=== PATIENT | male | born 1955 | race American Indian/Alaskan Native ===

== ENCOUNTER 2022-10-30 15:49 | Inpatient (IN) | payer MEDICARE, MEDICAID ==
[2022-10-30] VITALS (16 sets, daily range): BP systolic 97–134; BP diastolic 40–75
[~2022-10-30] VITALS: Ht 157.5 cm; Wt 89.7 kg
[2022-10-30] MEDS ORDERED: phenylephrine 10mg/ml inj. -priapism dosing ONE (16:09)
[2022-10-30] MEDS ORDERED: atropine 0.1mg/ml 10ml syringe ONE (16:09)
[2022-10-30] MEDS ORDERED: DOPamine 400mg/D5W 250ml 0 ML IV ONE (16:09)
[2022-10-30] MEDS ORDERED: LIDOcaine 1% 30ml preserv. free vial ONE (16:09)
[2022-10-30] MEDS ORDERED: heparin 1,000unit/ml 10ml vial 10 ML ONE (16:10)
[2022-10-30] MEDS ORDERED: iohexol 350MG/ML 100ml bottle IV ONE (16:10)
--- NOTE | 2022-10-30 16:10 | NUR ---
Pt upset because he wanted the IV in the right side. Pt not following commands or answering questions at this time. Caregiver states he is stubborn and won't talk when he's mad. Unable to complete full neuro assessment on pt.
[2022-10-30] MEDS ORDERED: diphenhydrAMINE 25mg capsule PO PRN (16:15)
[2022-10-30] MEDS ORDERED: LORazepam 0.5 MG tablet PO PRN (16:15)
[2022-10-30] MEDS: normal saline 1,000 ML IV SCH (16:15)
[2022-10-30] MEDS ORDERED: FLO0.4C PO (16:30)
[2022-10-30] MEDS ORDERED: ERGO400C PO (16:30)
[2022-10-30] MEDS ORDERED: TOPI-253 PO (16:30)
[2022-10-30] MEDS ORDERED: ASPI-611 PO (16:30)
[2022-10-30] MEDS ORDERED: CLIN300C56 PO (16:30)
[2022-10-30] MEDS ORDERED: PHEN100C12 PO (16:30)
[2022-10-30] MEDS ORDERED: CLOT30CR19 TOP (16:30)
[2022-10-30] MEDS ORDERED: ATOR40TA72 PO (16:30)
[2022-10-30] MEDS ORDERED: SOLI10TA7 PO (16:30)
[2022-10-30] MEDS ORDERED: AMLO10TA13 PO (16:30)
[2022-10-30] MEDS ORDERED: CLOP75TA34 PO (16:30)
[2022-10-30] MEDS ORDERED: PRIM250T8 PO (16:30)
[2022-10-30] MEDS ORDERED: LOSA100T58 PO (16:30)
[2022-10-30 16:40] LABS: BASOPHILS # (AUTO) 0.1 X10'3 (0-0.2); BASOPHILS % (AUTO) 1.4 % (0-1); EOSINOPHILS # (AUTO) 0.6 X10'3 (0-0.9); EOSINOPHILS % (AUTO) 6.5 % (0-6); HEMATOCRIT 43.4 % (42.0-52.0); HEMOGLOBIN 14.5 g/dl (14.0-17.9); LYMPHOCYTES # (AUTO) 2.1 X10'3 (1.1-4.8); LYMPHOCYTES % (AUTO) 22.1 % (21-51); MEAN CORPUSCULAR HEMOGLOBIN 30.3 PG (27.0-31.0); MEAN CORPUSCULAR HGB CONC 33.3 g/dL (33.0-36.5); MEAN PLATELET VOLUME 7.7 FL (7.4-10.4); MONOCYTES # (AUTO) 0.9 X10'3 (0-0.9); MONOCYTES % (AUTO) 9.5 % (2-12); NEUTROPHILS # (AUTO) 5.8 X10'3 (1.8-7.7); NEUTROPHILS % (AUTO) 60.5 % (42-75); PLATELET COUNT 300 X10'3 (140-440); RED BLOOD COUNT 4.77 X10'6 (4.70-6.10); RED CELL DISTRIBUTION WIDTH 14.4 % (11.5-14.5); WHITE BLOOD COUNT 9.7 X10'3 (4.5-11.0)
[2022-10-30 16:50] LABS: ALBUMIN 3.5 G/DL (3.4-5.0); ANION GAP 8 (8-16); BLOOD UREA NITROGEN 14 MG/DL (7-18); BUN/CREATININE RATIO 19.7 (10.0-20.0); CALCIUM 8.5 MG/DL (8.5-10.1); CHLORIDE 108 MMOL/L (99-107); CREATININE 0.71 MG/DL (0.60-1.10); GLUCOSE 118 MG/DL (70-104); POTASSIUM 3.7 MMOL/L (3.5-5.1); SODIUM 139 MMOL/L (135-145); TOTAL CARBON DIOXIDE 23.4 MMOL/L (24-32); eGFR > 90 ML/MIN
[2022-10-30] MEDS ORDERED: fentaNYL/PF 50MCG/1 ML 2ML syringe ONE (17:27)
[2022-10-30] MEDS ORDERED: clopidogrel 300mg tablet ONE (17:27)
--- NOTE | 2022-10-30 17:50 | NUR ---
Pt back from test lab technician. Report received. Dressing to right groin CD&I. Limited neuro assessment performed. Pt keeps closing eyes when I try to check his pupils with the pen light. Refusing pupil assessment. Cont to monitor.
[2022-10-30] MEDS ORDERED: hydrALAZINE 20mg/ml inj. IV PRN (18:25)
[2022-10-30] MEDS ORDERED: HYDROcodone/acetaminophen 10/325mg tab PO PRN (18:25)
[2022-10-30] MEDS ORDERED: pseudoephedrine 30mg tablet PO PRN (18:25)
[2022-10-30] MEDS: DOPamine 400mg/D5W 250ml 250 ML IV SCH (18:25)
[2022-10-30] MEDS ORDERED: normal saline 1000ml 1,000 ML IV SCH (18:25)
[2022-10-30] MEDS ORDERED: HYDROcodone/acetaminophen 5mg/325mg tablet PO PRN (18:25)
--- NOTE | 2022-10-30 18:25 | NUR ---
Patient in room PCU 3021. I have received report from Marily ARAIZA at [facility] stay and had the opportunity to ask questions and assume patient care.
--- NOTE | 2022-10-30 18:30 | NUR ---
Patient in room PCU 3021. I have received report from Jaja ARAIZA and had the opportunity to ask questions and assume patient care.
--- NOTE | 2022-10-30 18:30 | NUR ---
Pt transferred to room 3021. Report given to Justine ARAIZA. Pt groin CD&I without s/s hematoma or bleeding. All pt belongings tranferred to room as well. Transfer of care to Justine ARAIZA.
[2022-10-30] MEDS ORDERED: tamsulosin 0.4mg capsule PO SCH (21:00)
[2022-10-30] MEDS: cholecalciferol (vitamin D3) 400 unit (10mcg) tablet PO SCH (21:43)
[2022-10-30] MEDS: topiramate 25mg tablet PO SCH (21:44)
[2022-10-30] MEDS: phenytoin sod ER 100mg capsule PO SCH (21:59)
[2022-10-30] MEDS: oxybutynin 5mg tablet PO SCH (21:59)
[2022-10-30] MEDS: clindamycin 150mg capsule PO SCH (22:00)
[2022-10-30] MEDS: primidone 250mg tablet PO SCH (22:00)
[2022-10-31 00:45] VITALS: BP 95/51
[2022-10-31 01:15] VITALS: BP 91/49
[2022-10-31] MEDS: normal saline 1,000 ML IV SCH ×2 (01:28→12:15)
[2022-10-31 03:15] VITALS: BP 96/52
[2022-10-31] MEDS: clindamycin 150mg capsule PO SCH ×2 (03:37→07:45)
[2022-10-31 04:30] VITALS: BP 117/51
--- NOTE | 2022-10-31 06:39 | NUR ---
Patient in room PCU 3021. I have received report from TEODORA BENITEZ and had the opportunity to ask questions and assume patient care.
--- NOTE | 2022-10-31 06:43 | NUR ---
Problems reprioritized. Patient report given, questions answered & plan of care reviewed with Dali ARAIZA.
[2022-10-31 07:07] VITALS: BP 106/64
[2022-10-31 07:43] LABS: CHOL/HDL RATIO 2.5 (0.00-4.99); CHOLESTEROL 95 MG/DL (0-200); HDL CHOLESTEROL 38 MG/DL (35-60); LDL CHOLESTEROL 48 MG/DL (50-100); TRIGLYCERIDES 90 MG/DL (20-135)
[2022-10-31] MEDS: oxybutynin 5mg tablet PO SCH (07:45)
[2022-10-31] MEDS: topiramate 25mg tablet PO SCH (07:46)
[2022-10-31] MEDS: primidone 250mg tablet PO SCH (07:46)
[2022-10-31] MEDS: cholecalciferol (vitamin D3) 400 unit (10mcg) tablet PO SCH (07:48)
[2022-10-31] MEDS ORDERED: aspirin 81mg, enteric-coated 1 TAB TABLET.DR PO SCH (08:00)
[2022-10-31] MEDS ORDERED: atorvastatin 20mg tablet PO SCH (08:00)
[2022-10-31] MEDS ORDERED: losartan 50mg tablet PO SCH (08:00)
[2022-10-31] MEDS ORDERED: clopidogrel 75mg tablet PO SCH (08:00)
[2022-10-31] MEDS ORDERED: amLODIPine 5mg tablet PO SCH (08:00)
[2022-10-31] MEDS ORDERED: clotrimazole topical cream 15gm tube TP SCH (08:00)
[2022-10-31] MEDS: DOPamine 400mg/D5W 250ml 250 ML IV SCH (09:17)
[2022-10-31] MEDS: phenytoin sod ER 100mg capsule PO SCH (10:36)
--- NOTE | 2022-10-31 11:21 | NUR ---
Ambulated with patient accompanied by caregiver. Per patient caregiver patient is not at baseline with ambulating and feels he is unsafe to be discharged today. Kiki Smith notified. Addendum: 10/31/22 at 1154 by Dali Gonzalez RN Patient caregiver feels as if patient is limping a bit on the right leg but states she is aware that could be due to procedure and she states that he is hunched over pushing his walker out further than normal.
--- NOTE | 2022-10-31 11:40 | NUR ---
Received call back from Kiki Smith. She ordered PT eval and for casemanager to see patient. Notified pT and Casemanager.
[2022-10-31 11:45] VITALS: BP 101/80
--- NOTE | 2022-10-31 11:55 | NUR ---
Kiki Smith and [employer] [place] in to see patient.
--- NOTE | 2022-10-31 13:22 | NUR ---
Patient caregiver at bedside. Discussed with patient and caregiver discharge instructions. Caregiver verbalizes understanding of teaching. Patient discharged with all personal belongings accompanied by caregiver.
== END 2022-10-31 13:19 | disposition home or self-care (01) | DRG 36 ==
LOC: SSTAY O 15:49 → PCU 3S 20:29
PROVIDERS: ADMIT Student in an Organized Health Care Education/Training Program; ATTEND Student in an Organized Health Care Education/Training Program
PROC: 037K3DZ Dilation of Right Internal Carotid Artery with Intraluminal Device, Percutaneous Approach (ICD-10-PCS; principal; 2022-10-30)
PROC: B41F1ZZ Fluoroscopy of Right Lower Extremity Arteries using Low Osmolar Contrast (ICD-10-PCS; 2022-10-30)
PROC: B3131ZZ Fluoroscopy of Right Common Carotid Artery using Low Osmolar Contrast (ICD-10-PCS; 2022-10-30)
PROC: B3161ZZ Fluoroscopy of Right Internal Carotid Artery using Low Osmolar Contrast (ICD-10-PCS; 2022-10-30)
PROC: B3191ZZ Fluoroscopy of Right External Carotid Artery using Low Osmolar Contrast (ICD-10-PCS; 2022-10-30)
PROC: B3101ZZ Fluoroscopy of Thoracic Aorta using Low Osmolar Contrast (ICD-10-PCS; 2022-10-30)
DX: I65.21 Occlusion and stenosis of right carotid artery (principal); Z00.6 Encounter for examination for normal comparison and control in clinical research program; E78.5 Hyperlipidemia, unspecified; G40.909 Epilepsy, unspecified, not intractable, without status epilepticus; I10 Essential (primary) hypertension; Z86.73 Personal history of transient ischemic attack (TIA), and cerebral infarction without residual deficits
CPT/HCPCS: 36415; 37215; 80048; 80061; 85025; 85610; 93005; 97110; 97161; 97530; A6258; C1725; C1760; C1769; C1876; C1884; C1887; C1894; G0378; J0461; J1265; J1644; J2370; J3010; J3490; J7030; Q9967